=== PATIENT | female | born 1990 | race Caucasian/White ===

== ENCOUNTER 2016-08-31 22:14 | Emergency (ER) | payer SELFPAY ==
[~2016-08-31] VITALS: Ht 172.7 cm; Wt 63.8 kg
[~2016-08-31 22:14] MED LIST: MACR100C PO; OMEP20CA5 PO; PROM25SU8 PO; PROM50SU PR; RANI150 PO
[2016-08-31 22:20] VITALS: BP 134/98; PULSE 95; RESP 16; TEMP 98.2; O2SAT 98
--- NOTE | 2016-08-31 22:38 | PD ---
HPI Chief Complaint: Related Problem Time Seen by Provider: 22:26 Travel History International Travel<30 days: No Contact w/Intl Traveler<30days: No Traveled to known affect area: No History of Present Illness HPI 26-year-old female , proximally 22 weeks , LMP March 30, 2016, here for evaluation of possible [place] Rí[place] contractions. Patient reports that she began to have contractions at approximately 6:30 PM today. Initially they were about 5 minutes apart, lasting several seconds, then became more frequent. She states that they are now a little less frequent, stating that over the last hour she has had about 13 contractions. She denies vaginal bleeding or discharge. She has had routine care and reports no other complications with her . This is her first time having contractions. PFSH Past Medical History ?: LMP: march 30 Ovarian Cysts: Yes Social History Alcohol Use: Yes (drank 3 drinks last night) Tobacco Use: No Substance Use: No Allergies-Medications (Allergen,Severity, Reaction): Coded Allergies: No Known Allergies (Unverified , 06/24/15) Reported Meds & Prescriptions Reported Meds & Active Scripts Active Phenergan (Promethazine HCl) 50 Mg Sup 50 Mg DE Q8HR NAUSEA/VOMITING Macrobid (Nitrofurantoin Macrocrystals) 100 Mg Cap 100 Mg PO BID Prilosec 20 mg (Omeprazole) 20 Mg Capcr 20 Mg PO DAILY Phenergan (Promethazine HCl) 25 Mg Tab 25 Mg PO Q6H PRN FOR NAUSEA/VOMITING Zantac (Ranitidine HCl) 150 Mg Tab 150 Mg PO BID Review of Systems Except as stated in HPI: all other systems reviewed are Neg Physical Exam Narrative GENERAL: Well-developed, well-nourished, tearful, comfortable, no acute distress. SKIN: Focused skin assessment warm/dry. No rash. CARDIOVASCULAR: Regular rate and rhythm. GASTROINTESTINAL: Gravid uterus palpable above umbilicus. No abdominal tenderness. MUSCULOSKELETAL: No obvious deformities. No clubbing. No cyanosis. No edema. NEUROLOGICAL: Awake and alert. No obvious cranial nerve deficits. Motor grossly within normal limits. Normal speech. PSYCHIATRIC: Appropriate mood and affect; insight and judgment normal. Data Data Last Documented VS Vital Signs Date Time Temp Pulse Resp B/P Pulse Ox O2 Delivery O2 Flow Rate FiO2 5/9/17 22:20 98.2 95 16 134/98 98 [facility] Medical Decision Making Medical Screen Exam Complete: Yes Emergency Medical Condition: Yes Differential Diagnosis [place] contractions, labor Narrative Course Bedside ultrasound was performed by me and shows a large IUP with a heart rate of 135 bpm. Case discussed with on-call OB hospitalist Dr. Villanueva. Plan is to transfer the patient to the OB ED at [facility] for further monitoring. Patient does not wish to be transferred by ambulance and prefers to be driven by her friend who is present in the room. She will leave AMA and drive directly to the OB ED. Procedures Procedure Narrative Bedside transabdominal ultrasound: Using the curvilinear ultrasound probe, large IUP was identified with a heart rate of 135 bpm. Diagnosis Primary Impression: [place] Rí[place] contractions Additional Impression: Left against medical advice Additional Instructions: Go directly to the OB emergency department at [facility] in [facility] Disposition: 07 AGAINST MEDICAL ADVICE Condition: Stable Baljeet Joy MD August 31, 2016 22:38
[2016-08-31] MEDS ORDERED: PREN29TA PO (22:48)
== END 2016-08-31 23:04 | disposition left against medical advice (07) ==
LOC: PHED 22:14
DX: O47.02 False labor before 37 completed weeks of gestation, second trimester (principal); Z3A.22 22 weeks gestation of pregnancy
CPT/HCPCS: 99283

== ENCOUNTER 2016-08-31 23:22 | Emergency (ER) | payer OTHER ==
[~2016-08-31 23:22] MED LIST changes: +PREN29TA PO
--- NOTE | 2016-09-01 00:48 | PD ---
HPI Chief Complaint cramping, contractions Date Seen: September 01, 2016 Time Seen: 00:30 Travel History International Travel<30 Days: No Contact w/Intl Traveler<30Days: No Known Affected Area: No History of Present Illness HPI Pt is a 26 y/o G1 with IUP at 22w1d by stated TRENT who presents with c/o cramping /contractions. Pt states she started feeling cramping around 6:30 pm, diffuse abdominal, with some tightening. Pt states it got worse and she went home from work. States intensity varies, but felt up to 13 x in one hour. Pt presented to [facility] for eval, transferred here for OB eval. Pt reports that since arrival, cramping/contractions have decreased. Has only felt 2-3 since she has been here. denies vag bleeding or discharge. denies dysuria. + PNC with Dr. 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 reports h/o + CT, treated this o/w denies any complications of Para: 0 : 1 History Past Medical History Medical History: Denies Significant Hx Past Surgical History Narrative Surgical breast augmentation Family History Family History: Negative Social History Alcohol Use: No Tobacco Use: No Substance Abuse: No Allergies-Medications (Allergen,Severity, Reaction): Coded Allergies: No Known Allergies (Unverified , 08/31/16) Home Meds Reported Medications Vit-Iron Carbonyl ( Plus Iron 29-1 mg)1 Tab Tab1 Tab PO DAILY #30 TAB Ref 0 08/31/16 Review of Systems General / Constitutional: No: Fever, Weight Gain, Weight Loss, Chills, Other Eyes: No: Diploplia, Blurred Vision, Visual changes, Pain, Photophobia, Other HENT: No: Headaches, Vertigo, Dental Difficulties, Lightheadedness, Other Cardiovascular: No: Irregular Rhythm, Chest Pain or Discomfort, Palpitations, Tachycardia, Syncope, Varicosities, Edema, Cyanosis, Other Respiratory: No: Cough, Short of Breath, Wheezing, Other Gastrointestinal: Abdominal Pain, No: Nausea, Vomiting, Diarrhea, Hematemesis , Hematochezia, Constipation, Changes in Bowel Habits, Indigestion, Loss of Appetite, Other Genitourinary: No: Urgency, Frequency, Dysuria, Nocturia, Hematuria, Decreased Urinary Output, Oliguria, Hesitancy, Dribbling, Incontinence, Pelvic Pain, Dyspareunia, Discharge, Menorrhagia, Vaginal Bleeding, Other Musculoskeletal: No: Limited ROM, Weakness, Cramping, Edema, Pain, Other Skin: No Rash, No Itching, No Dryness, No Lumps, No Change in Pigmentation, No Change in Nails, No Alopecia, No Lesions, No Breast Lumps, No Breast Tenderness , No Breast Swelling, No Other Neurologic: No: Weakness, Dizziness, Syncope, Focal Abnormalities, Coordination Problem, Headache, Slurred Speech, Seizures, Other Psychiatric: No: Anxiety, Depression, Suicidal Ideations, Disorder of Thought, Mood Disorder, Substance Abuse, Homicidal Ideation, Other Endocrine: No: Heat Intolerance, Cold Intolerance, Polydipsia, Polyuria, Other Hematologic/Lymphatic: No Easy Bruising, No Lymph Node Enlargement, No Other Physical Exam 132/51, 80, 18, 97.2 Narrative GENERAL: Well-nourished, well-developed patient. SKIN: Warm and dry. HEAD: Normocephalic and atraumatic. EYES: No scleral icterus. No injection or drainage. ENT: No nasal drainage noted. Mucous membranes pink. Airway patent. NECK: Supple, trachea midline. No JVD. CARDIOVASCULAR: Regular rate and rhythm without murmurs, gallops, or rubs. RESPIRATORY: Breath sounds equal bilaterally. No accessory muscle use. . ABDOMEN/GI: Abdomen soft, non-tender, bowel sounds present, no rebound, no guarding gravid GENITOURINARY: External Genitalia: intact and normal in appearance BUS glands: [wnl] Cervix: visually closed on spec exam, closed/long/posterior on BME scant homogeneous white discharge in vault, no vag/cervical lesions, inflammation, irritation Uterine Contractions: [none ?irritability] FHT's: 130s EXTREMITIES: No cyanosis or edema. BACK: Nontender without obvious deformity. No CVA tenderness. NEUROLOGICAL: Awake and alert. Motor and sensory grossly within normal limits. Five out of 5 muscle strength in all muscle groups. Normal speech. Data Data Vital Signs Reviewed: Yes Orders Vital Signs (Adult) .ON ADMISSION (09/01/16 00:27) ^ Labor Status (09/01/16:27) Urinalysis - C+S If Indicated (09/01/16:27) ^ Hydration (5/10/17 00:27) MDM Narrative Course / MDM 26 y/o G1 with cramping, now improving --cervix closed; no s/sx vaginitis --rec continued hydration --return for worsening symptoms --will f/u UA prior to discharge Diagnosis Diagnosis: Primary Impression: [place] Ríos contractions Additional Impression: 22 weeks gestation of Disposition: 01 DISCHARGE HOME Condition: Stable Dea Villanueva MD September 01, 2016 00:48
[2016-09-01 00:52] LABS: BACTERIA, URINE RARE /hpf; BLOOD, URINE NEG (NEG); GLUCOSE,URINE NEG (NEG); KETONE, URINE NEG (NEG); NITRITE,URINE NEG (NEG); TRANSITIONAL EPI CELLS, URINE <1 /hpf; URINE COLOR LIGHT-YELLOW (YELLW/STRAW)
[2016-09-01 00:59] LABS: COMMENT (UR) CULT NOT INDICATED; CULTURE IF INDICATED CULT NOT INDICATED
== END 2016-09-01 02:14 | disposition home or self-care (01) ==
LOC: HOBED 23:22
DX: O47.9 False labor, unspecified (principal); R10.9 Unspecified abdominal pain; Z3A.22 22 weeks gestation of pregnancy
CPT/HCPCS: 81001; 99284

== ENCOUNTER 2016-10-08 17:45 | Emergency (ER) | payer OTHER ==
[2016-10-08] VITALS (43 sets, daily range): PULSE 75–108; RESP 18
[~2016-10-08 17:45] MED LIST changes: -MACR100C PO; -OMEP20CA5 PO; -PROM25SU8 PO; -PROM50SU PR; -RANI150 PO
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
== END 2016-10-08 23:43 | disposition home or self-care (01) ==
LOC: HOBED 17:45
DX: O26.92 Pregnancy related conditions, unspecified, second trimester (principal); Z3A.27 27 weeks gestation of pregnancy; S30.1XXA Contusion of abdominal wall, initial encounter; V49.40XA Driver injured in collision with unspecified motor vehicles in traffic accident, initial encounter; W22.11XA Striking against or struck by driver side automobile airbag, initial encounter; Y93.89 Activity, other specified; Y92.410 Unspecified street and highway as the place of occurrence of the external cause; Y99.8 Other external cause status
CPT/HCPCS: 76816; 76819; 83030; 99284

== ENCOUNTER 2017-12-14 07:09 | Observation (INO) ==
[2017-12-14] MEDS ORDERED: Sod Chloride 0.9% Inj 1,000 ML IV.SIG ONE ×2 (08:11→10:45)
[2017-12-14] MEDS ORDERED: Acetaminophen Inj 650 MG/65 ML VIAL IV.SIG ONE (08:13)
--- NOTE | 2017-12-14 08:17 | ED ---
HPI General Chief Complaint: Abdominal Pain Stated Complaint: abd pain Time Seen by Provider: 12/14/17 08:06 History of Present Illness HPI narrative: Patient presents to the emergency department with right lower quadrant pain that started at 630 this morning. Pain radiates to her back, sharp, constant, aggravated by trying to lay back, no alleviating factors. States that she does have a history of ovarian cyst rupture. Denies fever, chills, dysuria, hematuria, diarrhea, vomiting, but does report nausea. Patient is currently breast-feeding as she had a baby approximately 1 year ago. She states that she does not want any pain medication that would interfere with her breast-feeding. She had unprotected sex on Tuesday she does have a history of herpes. States that she is currently on her menstrual cycle. Related Data Home Medications Medication Instructions Recorded Confirmed No Known Home Medications 12/14/17 12/14/17 Allergies Allergy/AdvReac Type Severity Reaction Status Date / Time No Known Allergies Allergy Verified 12/14/17 07:19 Review of Systems ROS: all other systems reviewed are negative [facility] Medical History Medical History Ovarian cyst (Acute) Social History Social History Substance History: No History of Abuse Smoking Status: Never smoker How Often Do You Have a Drink Containing Alcohol: 2 to 4 times a month Recent Travel in [facility] within the Last 8 Weeks: No Recent Out of Country Travel within the Last 8 Weeks: No Immunization History Tetanus Immunization: Unsure Hx Influenza Vaccine This Season: No Exam Narrative Exam Narrative: GENERAL: In discomfort secondary to pain. SKIN: Focused skin assessment warm/dry. HEAD: Atraumatic. Normocephalic. EYES: Pupils equal and round. No scleral icterus. No injection or drainage. ENT: No nasal bleeding or discharge. Mucous membranes pink and moist. NECK: Trachea midline. No JVD. CARDIOVASCULAR: Regular rate and rhythm. No murmur appreciated. RESPIRATORY: No accessory muscle use. Clear to auscultation. Breath sounds equal bilaterally. GASTROINTESTINAL: Abdomen soft, right lower quadrant tender, nondistended. Right CVA tenderness. MUSCULOSKELETAL: No obvious deformities. No clubbing. No cyanosis. No edema. NEUROLOGICAL: Awake and alert. No obvious cranial nerve deficits. Motor grossly within normal limits. Normal speech. PSYCHIATRIC: Appropriate mood and affect; insight and judgment normal. Pelvic: Difficult to assess CMT/adnexa tenderness as patient writing around in bed prior to, during, and after pelvic, + bleeding from cervix (patient on menses), erythematous cervix Course Initial Documented Vital Signs Temperature 98.2 F 12/14/17 07:10 Pulse Rate 121 H 12/14/17 07:10 Respiratory Rate 20 12/14/17 07:10 Blood Pressure 130/76 12/14/17 07:10 Pulse Oximetry 99 12/14/17 07:10 Last Documented Vital Signs Temperature 98.2 F 12/14/17 07:10 Pulse Rate 111 H 12/14/17 10:00 Respiratory Rate 18 12/14/17 10:00 Blood Pressure 130/89 12/14/17 10:00 Pulse Oximetry 98 12/14/17 10:00 Medical Decision Making MDM Narrative Medical decision making narrative: Patient presents to the emergency department with right lower quadrant pain. Patient placed on telemetry monitor, continuous pulse ox, and IV access obtained. She given 1 L IV normal saline and 650 mg IV Tylenol. Labs and CT scan ordered. Labs: + UTI, clue cells, Patient given 1gram IV rocephin for UTI. Flagyl 500mg po for BV. Additional liter of IV NS. 4mg IV zofran ordered. CT: CONCLUSION:No acute CT findings in the abdomen or pelvis. U/S: CONCLUSION: 1. No acute finding is identified to explain the right lower quadrant pain.2. Heterogeneous endometrium with trace endometrial fluid. Patient is currently in the menstrual phase which may explain the findings. Consider follow-up if there is a history of dysfunctional uterine bleeding.3. Ovaries have a normal appearance with normal follicles. There is a small volume of simple free fluid in the pelvis. patient admitte dfor obs for intractable pain, n/v, and pyelonephritis Medical Screen Exam Complete: Yes Emergency Medical Condition: Yes Differential Diagnosis Differential Diagnosis: Appendicitis, ovarian torsion, , kidney stone, pyelo nephritis, cholecystitis, UTI POC Test Results POC Urine Results: Negative Lab Data Result diagrams: 12/14/17 07:25 12/14/17 07:25 Lab Results 12/14/17 12/14/17 12/14/17 Range/Units 07:25 07:25 07:25 WBC 10.1 (4.0-11.0) th/mm3 RBC 4.47 (4.00-5.30) mil/mm3 Hgb 13.7 (11.6-15.3) gm/dL Hct 39.3 (35.0-46.0) % MCV 88.0 (80.0-100.0) fL MCH 30.7 (27.0-34.0) pg MCHC 34.9 (32.0-36.0) % RDW 12.5 (11.6-17.2) % Plt Count 285 (150-450) th/mm3 MPV 8.4 (7.0-11.0) fL Neut % (Auto) 60.7 (16.0-70.0) % Lymph % (Auto) 27.6 (9.0-44.0) % [place] % (Auto) 10.6 H (0.0-8.0) % Eos % (Auto) 0.8 (0.0-4.0) % Baso % (Auto) 0.3 (0.0-2.0) % Neut # (Auto) 6.1 (1.8-7.7) th/mm3 Lymph # (Auto) 2.8 (1.0-4.8) th/mm3 [place] # (Auto) 1.1 H (0.0-0.9) th/mm3 Eos # (Auto) 0.1 (0.0-0.4) th/mm3 Baso # (Auto) 0.0 (0.0-0.2) th/mm3 WBC Differential . Differential Comment Auto diff final PT 10.8 (9.8-11.6) sec INR 1.1 Ratio APTT 24.7 (24.3-30.1) sec Sodium 140 (136-145) meq/L Potassium 4.2 (3.5-5.1) meq/L Chloride 106 (98-107) meq/L Carbon Dioxide 21.2 (21.0-32.0) meq/L Anion Gap 13 (5-15) meq/L BUN 13 (7-18) mg/dL Creatinine 0.81 (0.50-1.00) mg/dL Estimated GFR 86 L (>89) mL/min Random Glucose 75 (74-106) mg/dL Calcium 8.7 (8.5-10.1) mg/dL Total Bilirubin 0.4 (0.2-1.0) mg/dL AST 20 (15-37) U/L ALT 22 (10-53) U/L Alkaline Phosphatase 67 (45-117) U/L Total Protein 8.4 H (6.4-8.2) g/dL Albumin 4.4 (3.4-5.0) g/dL Lipase 95 (73-393) U/L Urine Color (Yellw/Straw) Urine Clarity (Clear) Urine pH (5.0-8.5) Ur Specific [place] (1.002-1.035) Urine Protein (Neg-Trace) mg/dL Urine Glucose (UA) (Negative) mg/dL Urine Ketones (Negative) mg/dL Urine Occult Blood (Negative) Urine Nitrate (Negative) Urine Bilirubin (Negative) Urine Urobilinogen (Less than 2) mg/dL Ur Leukocyte Esterase (Negative) Urine RBC (0-3) /hpf Urine WBC (0-5) /hpf Ur Squamous Epith Cells (0-5) /hpf Urine Bacteria (None) /hpf Micro UA Comment Urine Culture Comments Clue Cells (Wet Prep) (None Seen) Trichomonas (Wet Prep) (None Seen) Yeast (Wet Prep) (None Seen) 12/14/17 12/14/17 Range/Units 08:46 08:50 WBC (4.0-11.0) th/mm3 RBC (4.00-5.30) mil/mm3 Hgb (11.6-15.3) gm/dL Hct (35.0-46.0) % MCV (80.0-100.0) fL MCH (27.0-34.0) pg MCHC (32.0-36.0) % RDW (11.6-17.2) % Plt Count (150-450) th/mm3 MPV (7.0-11.0) fL Neut % (Auto) (16.0-70.0) % Lymph % (Auto) (9.0-44.0) % [place] % (Auto) (0.0-8.0) % Eos % (Auto) (0.0-4.0) % Baso % (Auto) (0.0-2.0) % Neut # (Auto) (1.8-7.7) th/mm3 Lymph # (Auto) (1.0-4.8) th/mm3 [place] # (Auto) (0.0-0.9) th/mm3 Eos # (Auto) (0.0-0.4) th/mm3 Baso # (Auto) (0.0-0.2) th/mm3 WBC Differential Differential Comment PT (9.8-11.6) sec INR Ratio APTT (24.3-30.1) sec Sodium (136-145) meq/L Potassium (3.5-5.1) meq/L Chloride (98-107) meq/L Carbon Dioxide (21.0-32.0) meq/L Anion Gap (5-15) meq/L BUN (7-18) mg/dL Creatinine (0.50-1.00) mg/dL Estimated GFR (>89) mL/min Random Glucose (74-106) mg/dL Calcium (8.5-10.1) mg/dL Total Bilirubin (0.2-1.0) mg/dL AST (15-37) U/L ALT (10-53) U/L Alkaline Phosphatase (45-117) U/L Total Protein (6.4-8.2) g/dL Albumin (3.4-5.0) g/dL Lipase (73-393) U/L Urine Color Yellow (Yellw/Straw) Urine Clarity Hazy H (Clear) Urine pH 7.0 (5.0-8.5) Ur Specific [place] 1.009 (1.002-1.035) Urine Protein 30 H (Neg-Trace) mg/dL Urine Glucose (UA) Negative (Negative) mg/dL Urine Ketones Negative (Negative) mg/dL Urine Occult Blood Moderate H (Negative) Urine Nitrate Negative (Negative) Urine Bilirubin Negative (Negative) Urine Urobilinogen Less than 2 (Less than 2) mg/dL Ur Leukocyte Esterase Large H (Negative) Urine RBC 3 (0-3) /hpf Urine WBC 72 H (0-5) /hpf Ur Squamous Epith Cells 3 (0-5) /hpf Urine Bacteria Occasional H (None) /hpf Micro UA Comment Culture indicated Urine Culture Comments Culture indicated Clue Cells (Wet Prep) Present H (None Seen) Trichomonas (Wet Prep) None seen (None Seen) Yeast (Wet Prep) None seen (None Seen) Imaging Data Radiologist's impression: Abdomen/Pelvis CT 12/14/17 08:11 CONCLUSION: No acute CT findings in the abdomen or pelvis. Abdomen/Pelvis/Transvag US 12/14/17 09:29 CONCLUSION: 1. No acute finding is identified to explain the right lower quadrant pain. 2. Heterogeneous endometrium with trace endometrial fluid. Patient is currently in the menstrual phase which may explain the findings. Consider follow -up if there is a history of dysfunctional uterine bleeding. 3. Ovaries have a normal appearance with normal follicles. There is a small volume of simple free fluid in the pelvis. Discharge Plan Discharge Disposition Patient Disposition: 30 Still Patient Discharge Condition Condition: Stable Discharge Details Diagnosis: Pyelonephritis Physicians Team ED Provider: Shell Shell Primary Care Provider: Primary Care Imani Jackson Rxs /Orders / Referrals /Forms Prescriptions: No Action No Known Home Medications RF: 0 Discharge Interventions Interventions: Vital Signs Last Done: 12/14/17 10:00 Status ED Status: Admitted Observation Patient
[2017-12-14 08:42] LABS: Baso % (Auto) 0.3 % (0.0-2.0); Eos # (Auto) 0.1 th/mm3 (0.0-0.4); Eos % (Auto) 0.8 % (0.0-4.0); Hematocrit 39.3 % (35.0-46.0); Hemoglobin 13.7 gm/dL (11.6-15.3); Lymph # (Auto) 2.8 th/mm3 (1.0-4.8); Lymph % (Auto) 27.6 % (9.0-44.0); Mean Corpuscular HGB Conc 34.9 % (32.0-36.0); Mean Corpuscular Hemoglobin 30.7 pg (27.0-34.0); Mean Platelet Volume 8.4 fL (7.0-11.0); Mono # (Auto) 1.1 th/mm3 (0.0-0.9); Mono % (Auto) 10.6 % (0.0-8.0); Neut # (Auto) 6.1 th/mm3 (1.8-7.7); Neut % (Auto) 60.7 % (16.0-70.0); Platelet Count 285 th/mm3 (150-450); Red Blood Count 4.47 mil/mm3 (4.00-5.30); Red Cell Distribution Width 12.5 % (11.6-17.2); White Blood Count 10.1 th/mm3 (4.0-11.0)
[2017-12-14 08:47] LABS: Activated Partial Thrombo Time 24.7 sec (24.3-30.1); INR 1.1 Ratio; Prothrombin Time 10.8 sec (9.8-11.6)
[2017-12-14 09:02] LABS: Albumin 4.4 g/dL (3.4-5.0); Anion Gap 13 meq/L (5-15); Aspartate Aminotransferase 20 U/L (15-37); Blood Urea Nitrogen 13 mg/dL (7-18); Calcium 8.7 mg/dL (8.5-10.1); Carbon Dioxide 21.2 meq/L (21.0-32.0); Chloride 106 meq/L (98-107); Glomerular Filtration Rate 86 mL/min (>89); Glucose,Random 75 mg/dL (74-106); Lipase 95 U/L (73-393); Potassium 4.2 meq/L (3.5-5.1); Sodium 140 meq/L (136-145)
[2017-12-14 09:03] LABS: Alanine Aminotransferase 22 U/L (10-53)
[2017-12-14 09:05] LABS: Alkaline Phosphatase 67 U/L (45-117); Total Protein 8.4 g/dL (6.4-8.2)
[2017-12-14 09:17] LABS: Bacteria,Urine Occasional /hpf; Bilirubin,Urine Negative (Negative); Clarity,Urine Hazy (Clear); Color,Urine Yellow (Yellw/Straw); Glucose,Urine (UA) Negative (Negative); Leukocyte Esterase,Urine Large (Negative); Nitrite,Urine Negative (Negative); Specific Gravity,Urine 1.009 (1.002-1.035); Squamous Epithelial Cell,Urine 3 /hpf (0-5)
--- NOTE | 2017-12-14 09:21 | CT ---
EXAM DATE: 12/14/2017 9:12 AM EDT AGE/SEX: 27 years / Female INDICATIONS: Right lower quadrant pain. CLINICAL DATA: This is the patient's initial encounter. Patient reports that signs and symptoms have been present for 2 days and indicates a pain score of 8/10. MEDICAL/SURGICAL HISTORY: None. None. RADIATION DOSE: 9.15 CTDI (mGy) COMPARISON: No prior exams available for comparison. TECHNIQUE: Multiple contiguous axial images were obtained through the abdomen. Images were obtained using multiple row detector helical technique. Using automated exposure control and adjustment of the mA and/or kV according to patient size, radiation dose was kept as low as reasonably achievable to o btain optimal diagnostic quality images. DICOM format image data is available electronically for rev iew and comparison. FINDINGS: Lower Lungs: The visualized lower lungs are clear. Liver: The liver has a homogeneous density without space-occupying lesion. There is no dilation of th e biliary tree. Spleen: Homogeneous density without enlargement. Pancreas: Unremarkable without mass or calcification. Kidneys: Normal in size and shape. No evidence of mass or hydronephrosis. Adrenal Glands: Unremarkable. Aorta: The aorta and proximal iliac vessels are grossly unremarkable without aneurysmal dilation. Bowel/Mesentery: The bowel loops are grossly unremarkable. The cecum and sigmoid colon have a normal configuration. The appendix is seen and appears normal. Abdominal Wall: Intact. Retroperitoneum: No evidence of adenopathy in the retrocrural, para-aortic, or deep pelvic regions. Bladder: Contours are smooth. Reproductive Organs: No abnormal masses or calcifications seen. Inguinal: The inguinal region is unremarkable without evidence of adenopathy. Bony Structures: Unremarkable. CONCLUSION: No acute CT findings in the abdomen or pelvis. Electronically signed by: Victorino Blanco MD 12/14/2017 9:19 AM EDT
--- NOTE | 2017-12-14 10:26 | US ---
EXAM DATE: 12/14/2017 10:16 AM EDT AGE/SEX: 27 years / Female INDICATIONS: Right lower quadrant pain. CLINICAL DATA: This is the patient's initial encounter. Patient reports that signs and symptoms have been present for 1 day and indicates a pain score of 10/10. MEDICAL/SURGICAL HISTORY: . Ovarian cysts. None. COMPARISON: [facility] [place], CT ABDOMEN & PELVIS W/O CONTRAST, 12/14/2017. . MEASUREMENTS: Uterus:__6.8 x 5.7 x 3.7 cm Endometrial Stripe:__8 mm Right Ovary:__ 2.6 x 2.5 x 2.0 cm Left Ovary:__ 3.3 x 1.9 x 1.6 cm FINDINGS: Uterus: Uterine myometrium is within normal limits without mass. Endometrium is heterogeneous in ech otexture with a trace endometrial fluid. No focal endometrial abnormality is identified. Cervix has a normal appearance. Endometrial Stripe: Endometrial fluid is visualized. Right Ovary: Ovary contains no mass. Follicles are present. Left Ovary: Ovary contains no mass. Follicles are present. Fluid: Mild simple free fluid. Other: None. CONCLUSION: 1. No acute finding is identified to explain the right lower quadrant pain. 2. Heterogeneous endometrium with trace endometrial fluid. Patient is currently in the menstrual pha se which may explain the findings. Consider follow-up if there is a history of dysfunctional uterine bleeding. 3. Ovaries have a normal appearance with normal follicles. There is a small volume of simple free fl uid in the pelvis. Electronically signed by: Victorino Lazo MD 12/14/2017 10:24 AM EDT
[2017-12-14] MEDS ORDERED: metroNIDAZOLE 500 MG Tablet PO ONE (10:44)
[2017-12-14] MEDS ORDERED: Acetaminophen 500 MG Tablet PO PRN ×2 (11:50→12:13)
--- NOTE | 2017-12-14 11:57 | P.HPIM ---
History of Present Illness Service: Mrs. Grimaldo is a 27-year-old female. She is coming to the emergency department secondary to abdominal pain and back pain. She also has persistent nausea/ vomiting. Abdominal pain is described as severe and mostly in the right lower quadrant. She was worried about appendicitis. She also thought she might of had an ovarian cyst which she has had in the past. Workup in the emergency department shows positivity for urinary tract infection and she has positive CVA tenderness which would be indicative of pyelonephritis. Imaging does not show any abscess or visualize hydronephrosis. She has tachycardia but does not quite meet septic criteria at time of admit. No evidence of ectopic on ultrasound, beta-hCG pending. Primary Care Physician: No Primary Care Physician Review of Systems Constitutional: No fevers, no chills no night sweats, no fatigue, no weakness Eyes: No eye pain, no blurry vision, no loss of vision ENT: No sore throat, no ear pain, no rhinorrhea Cardiovascular: No chest pain, no tachycardia, no palpitations, no shortness of breath, no syncope Respiratory: No wheezing, no cough, no shortness of breath Gastrointestinal: Positive abdominal pain, no black tarry stools, no bright red blood per rectum, positive nausea/vomiting, no diarrhea Musculoskeletal: No joint pain, no muscle cramps, no stiffness, positive back pain Integumentary: No rash, no ulcers, no drainage Neurologic: No sensory loss, no loss of motor function, no dizziness Psychiatric: No behavioral changes, no hallucinations, no suicidal ideations PMFSH - History History Provided By: Patient - Medical History Medical History: Medical History (Last Updated 12/14/17 @ 07:28 by Eden Qiu) Ovarian cyst - Tobacco History Smoking Status: Never smoker - Alcohol History How Often Do You Have a Drink Containing Alcohol: 2 to 4 times a month - Substance Use History Substance History: No History of Abuse - Travel History Recent Travel in the [place] Within the Last 8 Weeks: No Recent Travel Out of the Country Within the Last 8 Weeks: No - Immunization History Tetanus Immunization: Unsure Hx Influenza Vaccine This Season: No Medications and Allergies Active Medications: Active Medications Acetaminophen (Tylenol) 500 mg PO Q6H PRN PRN Reason: Pain 1 to 10 Al Hydroxide/Mg Hydroxide (Milk Of Magnesia Liq) 30 ml PO Q12H PRN PRN Reason: Mild Constipation Metronidazole/Sodium Chloride (Flagyl 500 Mg Inj) 100 mls @ 100 mls/hr IV.SIG Q8H [facility] Sodium Chloride (Ns Inj) 1,000 mls @ 100 mls/hr IV.CONT .Q10H [facility] Ceftriaxone Sodium 1,000 mg/ (Sodium Chloride) 100 mls @ 200 mls/hr IV.SIG Q24H [facility] Lactobacillus Acidophilus (Lactinex) 1 tab PO TID [facility] Naproxen (Naprosyn) 500 mg PO BID [facility]RES Naproxen (Naprosyn) 500 mg PO ONCE ONE Stop: 12/14/17 11:52 Ondansetron HCl (Zofran Inj) 4 mg IV.PUSH Q6H PRN PRN Reason: NAUSEA OR VOMITING Allergies Allergy/AdvReac Type Severity Reaction Status Date / Time No Known Allergies Allergy Verified 12/14/17 07:19 Home Medications Medication Instructions Recorded Confirmed Type No Known Home Medications 12/14/17 12/14/17 History Exam Vital signs: Vital Signs 12/14/17 07:10 12/14/17 07:30 12/14/17 10:00 Temperature 98.2 F Pulse Rate 121 H 88 111 H Respiratory Rate 20 18 Blood Pressure 130/76 139/94 H 130/89 Pulse Oximetry 99 98 98 Intake & Output 12/13/17 12/14/17 12/14/17 18:59 06:59 18:59 Intake Total 1065 / 1065 Balance 1065 / 1065 Weight 56.699 kg Intake: IV 1065 / 1065 Ofirmev Inj 650 mg In 65 ml @ 65 / 65 260 mls/hr IV.SIG ONCE ONE Rx#: [id number] NS Inj 1,000 ML @ Wide Open IV. 1000 / 1000 SIG BOLUS ONE Rx#:[id number] Narrative: GENERAL: NAD, A&Ox3 HEAD: Normocephalic. NECK: Supple, trachea midline. No lymphadenopathy. EYES: No scleral icterus. No injection or drainage. CARDIOVASCULAR: Regular rate and rhythm without murmurs, gallops, or rubs. RESPIRATORY: Breath sounds equal bilaterally. No accessory muscle use. GASTROINTESTINAL: Abdomen soft, nondistended. Tender to palpation without guarding. MUSCULOSKELETAL: No cyanosis, or edema. Right CVA tenderness. SKIN: Warm and dry. NEURO: No focal neurological deficits. Results - Labs CBC & Chem 7: 12/14/17 07:25 08/22/18 07:25 Labs: Short CBC 12/14/17 Range/Units 07:25 WBC 10.1 (4.0-11.0) th/mm3 Hgb 13.7 (11.6-15.3) gm/dL Hct 39.3 (35.0-46.0) % Plt Count 285 (150-450) th/mm3 BMP 12/14/17 07:25 Sodium 140 Potassium 4.2 Chloride 106 Carbon Dioxide 21.2 BUN 13 Creatinine 0.81 Calcium 8.7 Liver Function 12/14/17 Range/Units 07:25 Total Bilirubin 0.4 (0.2-1.0) mg/dL AST 20 (15-37) U/L ALT 22 (10-53) U/L Alkaline Phosphatase 67 (45-117) U/L Albumin 4.4 (3.4-5.0) g/dL Urine 12/14/17 Range/Units 08:50 Urine Color Yellow (Yellw/Straw) Urine Clarity Hazy H (Clear) Urine pH 7.0 (5.0-8.5) Ur Specific [place] 1.009 (1.002-1.035) Urine Protein 30 H (Neg-Trace) mg/dL Urine Glucose (UA) Negative (Negative) mg/dL - Imaging Impressions Abdomen/Pelvis CT 12/14/17 08:11 CONCLUSION: No acute CT findings in the abdomen or pelvis. Abdomen/Pelvis/Transvag US 12/14/17 09:29 CONCLUSION: 1. No acute finding is identified to explain the right lower quadrant pain. 2. Heterogeneous endometrium with trace endometrial fluid. Patient is currently in the menstrual phase which may explain the findings. Consider follow -up if there is a history of dysfunctional uterine bleeding. 3. Ovaries have a normal appearance with normal follicles. There is a small volume of simple free fluid in the pelvis. Caprini VTE Risk Assessment Caprini VTE Risk Assessment: No/Low Risk (score <= 1) Caprini Risk Assessment Model: Point Value = 1 Point Value = 2 Point Value = 3 Point Value = 5 Age 41-60 Minor surgery BMI > 25 kg/m2 Swollen legs Varicose veins or History of unexplained or recurrent spontaneous Oral contraceptives or hormone replacement Sepsis (< 1 month) Serious lung disease, including pneumonia (< 1 month) Abnormal pulmonary function Acute myocardial infarction Congestive heart failure (< 1 month) History of inflammatory bowel disease Medical patient at bed rest Age 61-74 Arthroscopic surgery Major open surgery (> 45 min) Laparoscopic surgery (> 45 min) Malignancy Confined to bed (> 72 hours) Immobilizing plaster cast Central venous access Age >= 75 History of VTE Family history of VTE Factor V Leiden Prothrombin [id number] Lupus anticoagulant Anticardiolipin antibodies Elevated serum homocysteine Heparin-induced thrombocytopenia Other congenital or acquired thrombophilia Stroke (< 1 month) Elective arthroplasty Hip, pelvis, or leg fracture Acute spinal cord injury (< 1 month) Prophylaxis Regimen: Total Risk Factor Score Risk Level Prophylaxis Regimen 0-1 Low Early ambulation 2 Moderate Order ONE of the following: *Sequential Compression Device (SCD) *Heparin 5000 units SQ BID 3-4 Higher Order ONE of the following medications: *Heparin 5000 units SQ TID *Enoxaparin/Lovenox 40 mg SQ daily (WT < 150 kg, CrCl > 30 mL/min) *Enoxaparin/Lovenox 30 mg SQ daily (WT < 150 kg, CrCl > 10-29 mL/min) *Enoxaparin/Lovenox 30 mg SQ BID (WT < 150 kg, CrCl > 30 mL/min) AND/OR *Sequential Compression Device (SCD) 5 or more Highest Order ONE of the following medications: *Heparin 5000 units SQ TID (Preferred with Epidurals) *Enoxaparin/Lovenox 40 mg SQ daily (WT < 150 kg, CrCl > 30 mL/min) *Enoxaparin/Lovenox 30 mg SQ daily (WT < 150 kg, CrCl > 10-29 mL/min) *Enoxaparin/Lovenox 30 mg SQ BID (WT < 150 kg, CrCl > 30 mL/min) AND *Sequential Compression Device (SCD) Assessment and Plan - Plan 27-year-old female admitted secondary to hyperemesis, abdominal pain, and UTI/ pyelonephritis Urinary tract infection Pyelonephritis Bacterial vaginosis Rocephin Flagyl Probiotics Pain treatments with Tylenol and NSAIDs (patient declines narcotics) Monitor for any signs of progression to sepsis Evaluate for with serum beta hCG No acute findings of concern on imaging including CT and ultrasound Hyperemesis Likely secondary to urinary colic from pyelonephritis Continue Zofran Continue pain treatments as above Dehydration DVT prophylaxis SCDs
[2017-12-14] MEDS ORDERED: Naproxen 500 MG Tablet PO ONE (13:00)
[2017-12-14] MEDS: Sod Chloride 0.9% Inj 1,000 ML IV.CONT SCH ×2 (13:06→21:14)
[2017-12-14] MEDS: Lactobacillus Acidophilus/L. Spores Tablet PO SCH ×2 (13:23→18:21)
[2017-12-14] MEDS: Naproxen 500 MG Tablet PO SCH (21:13)
[2017-12-15] MEDS: Sod Chloride 0.9% Inj 1,000 ML IV.CONT SCH ×2 (07:47→19:19)
--- NOTE | 2017-12-15 08:33 | P.PN ---
Subjective Interval history: Follow-up for acute pyelonephritis, UTI, bacterial vaginosis. Patient reports feeling slightly better today. She denies any fevers or chills overnight. She reports continued diffuse mild lower abdominal pain, worse at the right lower quadrant, with radiation into bilateral flanks today. She reports occasional nausea, no vomiting. Nausea relieved by Zofran. She tolerated some oral intake last night. Denies any other medical complaints at this time. Physical Exam Vital signs: Vital Signs 12/14/17 10:00 12/14/17 11:46 12/14/17 15:00 Temperature Pulse Rate 111 H 94 H 73 Respiratory Rate 18 18 16 Blood Pressure 130/89 148/60 H Pulse Oximetry 98 98 12/14/17 18:01 12/14/17 20:00 12/14/17 23:50 Temperature 98.8 F 97.2 F L Pulse Rate 75 91 H 70 Respiratory Rate 18 16 Blood Pressure 149/65 H 129/62 120/73 Pulse Oximetry 99 98 12/14/17 23:55 12/15/17 04:20 12/15/17 07:49 Temperature 96.5 F L 98.8 F Pulse Rate 65 64 Respiratory Rate 20 20 16 Blood Pressure 110/74 116/81 Pulse Oximetry 99 98 Intake & Output 12/14/17 12/15/17 12/15/17 18:59 06:59 18:59 Intake Total 1065 / 1065 2300 / 2300 Balance 1065 / 1065 2300 / 2300 Weight 56.699 kg Intake: IV 1065 / 1065 2300 / 2300 NS Inj 1,000 ML @ 100 mls/hr IV 1000 / 1000 .CONT .Q10H [facility] Rx#:[id number] Ofirmev Inj 650 mg In 65 ml @ 65 / 65 260 mls/hr IV.SIG ONCE ONE Rx#: [id number] NS Inj 1,000 ML @ Wide Open IV. 1000 / 1000 SIG BOLUS ONE Rx#:[id number] Flagyl 500 MG Inj 100 ML @ 100 200 / 200 mls/hr IV.SIG Q8H [facility] Rx#: [id number] Narrative: GENERAL: Well-nourished, well-developed young female patient in [facility]. Appears comfortable, lying in bed. SKIN: Warm and dry. No rash. HEENT: Normocephalic. Atraumatic. Pupils equal and round. Mucous membranes pink and moist. CARDIOVASCULAR: Regular rate and rhythm. No murmur appreciated. RESPIRATORY: No accessory muscle use. Clear to auscultation. Breath sounds equal bilaterally. GASTROINTESTINAL: Abdomen soft, nondistended, mild suprapubic tenderness to palpation. Normoactive bowel sounds x4. MUSCULOSKELETAL: No obvious deformities. Extremities without clubbing, cyanosis , or edema. Mild bilateral CVA tenderness. NEUROLOGICAL: Awake and alert. No obvious cranial nerve deficits. Motor grossly within normal limits. Moving all extremities spontaneously. Normal speech. PSYCHIATRIC: Appropriate mood and affect; insight and judgment normal. Results - Labs CBC & Chem 7: 12/14/17 07:25 12/14/17 07:25 Laboratory Results - last 24 hr 12/14/17 12/14/17 12/14/17 07:25 07:25 07:25 WBC 10.1 RBC 4.47 Hgb 13.7 Hct 39.3 MCV 88.0 MCH 30.7 MCHC 34.9 RDW 12.5 Plt Count 285 MPV 8.4 Neut % (Auto) 60.7 Lymph % (Auto) 27.6 [place] % (Auto) 10.6 H Eos % (Auto) 0.8 Baso % (Auto) 0.3 Neut # (Auto) 6.1 Lymph # (Auto) 2.8 [place] # (Auto) 1.1 H Eos # (Auto) 0.1 Baso # (Auto) 0.0 WBC Differential . Differential Comment Auto diff final PT 10.8 INR 1.1 APTT 24.7 Sodium 140 Potassium 4.2 Chloride 106 Carbon Dioxide 21.2 Anion Gap 13 BUN 13 Creatinine 0.81 Estimated GFR 86 L Random Glucose 75 Calcium 8.7 Total Bilirubin 0.4 AST 20 ALT 22 Alkaline Phosphatase 67 Total Protein 8.4 H Albumin 4.4 Lipase 95 Beta HCG, Qual Urine Color Urine Clarity Urine pH Ur Specific [place] Urine Protein Urine Glucose (UA) Urine Ketones Urine Occult Blood Urine Nitrate Urine Bilirubin Urine Urobilinogen Ur Leukocyte Esterase Urine RBC Urine WBC Ur Squamous Epith Cells Urine Bacteria Micro UA Comment Urine Culture Comments Clue Cells (Wet Prep) Trichomonas (Wet Prep) Yeast (Wet Prep) Chlam trachomat DNA PCR N.gonorrhoeae DNA (PCR) 12/14/17 12/14/17 12/14/17 07:25 08:46 08:46 WBC RBC Hgb Hct MCV MCH MCHC RDW Plt Count MPV Neut % (Auto) Lymph % (Auto) [place] % (Auto) Eos % (Auto) Baso % (Auto) Neut # (Auto) Lymph # (Auto) [place] # (Auto) Eos # (Auto) Baso # (Auto) WBC Differential Differential Comment PT INR APTT Sodium Potassium Chloride Carbon Dioxide Anion Gap BUN Creatinine Estimated GFR Random Glucose Calcium Total Bilirubin AST ALT Alkaline Phosphatase Total Protein Albumin Lipase Beta HCG, Qual Less than 1.0 Urine Color Urine Clarity Urine pH Ur Specific [place] Urine Protein Urine Glucose (UA) Urine Ketones Urine Occult Blood Urine Nitrate Urine Bilirubin Urine Urobilinogen Ur Leukocyte Esterase Urine RBC Urine WBC Ur Squamous Epith Cells Urine Bacteria Micro UA Comment Urine Culture Comments Clue Cells (Wet Prep) Present H Trichomonas (Wet Prep) None seen Yeast (Wet Prep) None seen Chlam trachomat DNA PCR Not detected N.gonorrhoeae DNA (PCR) Not detected 12/14/17 08:50 WBC RBC Hgb Hct MCV MCH MCHC RDW Plt Count MPV Neut % (Auto) Lymph % (Auto) [place] % (Auto) Eos % (Auto) Baso % (Auto) Neut # (Auto) Lymph # (Auto) [place] # (Auto) Eos # (Auto) Baso # (Auto) WBC Differential Differential Comment PT INR APTT Sodium Potassium Chloride Carbon Dioxide Anion Gap BUN Creatinine Estimated GFR Random Glucose Calcium Total Bilirubin AST ALT Alkaline Phosphatase Total Protein Albumin Lipase Beta HCG, Qual Urine Color Yellow Urine Clarity Hazy H Urine pH 7.0 Ur Specific [place] 1.009 Urine Protein 30 H Urine Glucose (UA) Negative Urine Ketones Negative Urine Occult Blood Moderate H Urine Nitrate Negative Urine Bilirubin Negative Urine Urobilinogen Less than 2 Ur Leukocyte Esterase Large H Urine RBC 3 Urine WBC 72 H Ur Squamous Epith Cells 3 Urine Bacteria Occasional H Micro UA Comment Culture indicated Urine Culture Comments Culture indicated Clue Cells (Wet Prep) Trichomonas (Wet Prep) Yeast (Wet Prep) Chlam trachomat DNA PCR N.gonorrhoeae DNA (PCR) - Imaging Impressions Abdomen/Pelvis CT 12/14/17 08:11 CONCLUSION: No acute CT findings in the abdomen or pelvis. Abdomen/Pelvis/Transvag US 12/14/17 09:29 CONCLUSION: 1. No acute finding is identified to explain the right lower quadrant pain. 2. Heterogeneous endometrium with trace endometrial fluid. Patient is currently in the menstrual phase which may explain the findings. Consider follow -up if there is a history of dysfunctional uterine bleeding. 3. Ovaries have a normal appearance with normal follicles. There is a small volume of simple free fluid in the pelvis. Assessment and Plan - Plan 27-year-old female with history of ovarian cysts presents with abdominal pain, flank pain, nausea/vomiting. Acute pyelonephritis/UTI: UA with large leuks and WBCs. No signs of sepsis at this time. -CT abd/pelvis reviewed, no acute findings -Pelvic U/S with No acute finding is identified to explain the right lower quadrant pain -Continue antibiotics with IV Rocephin -Continue supportive treatment with IV fluid hydration, antiemetics, and pain control with Tylenol/NSAIDs as needed (patient declines narcotics) -Monitor urine culture Bacterial vaginosis: Acute -Wet prep positive for clue cells -Continue on Flagyl, transition to p.o. Nausea/Vomiting: Acute, suspect urinary colic from pyelonephritis vs viral syndrome -give Zofran prn -IVF hydration -symptoms improved, no further vomiting DVT Prophylaxis: low risk, patient is ambulatory Discharge Planning: Discharge pending further clinical improvement and urine culture.
[2017-12-15] MEDS: Naproxen 500 MG Tablet PO SCH ×2 (12:01→20:42)
[2017-12-15] MEDS: Lactobacillus Acidophilus/L. Spores Tablet PO SCH ×3 (12:01→19:19)
[2017-12-15 12:16] LABS: Alanine Aminotransferase 18 U/L (10-53); Albumin 3.7 g/dL (3.4-5.0); Alkaline Phosphatase 56 U/L (45-117); Anion Gap 9 meq/L (5-15); Aspartate Aminotransferase 18 U/L (15-37); Blood Urea Nitrogen 9 mg/dL (7-18); Chloride 112 meq/L (98-107); Glomerular Filtration Rate Greater Than 89 mL/min (>89); Glucose,Random 84 mg/dL (74-106); Potassium 4.2 meq/L (3.5-5.1)
[2017-12-15 12:19] LABS: Sodium 142 meq/L (136-145)
[2017-12-15 13:25] LABS: Baso % (Auto) 0.4 % (0.0-2.0); Eos # (Auto) 0.1 th/mm3 (0.0-0.4); Eos % (Auto) 1.4 % (0.0-4.0); Hemoglobin 12.5 gm/dL (11.6-15.3); Lymph # (Auto) 1.4 th/mm3 (1.0-4.8); Lymph % (Auto) 32.2 % (9.0-44.0); Mean Corpuscular HGB Conc 34.7 % (32.0-36.0); Mean Corpuscular Hemoglobin 30.4 pg (27.0-34.0); Mean Corpuscular Volume 87.5 fL (80.0-100.0); Mean Platelet Volume 8.3 fL (7.0-11.0); Mono # (Auto) 0.4 th/mm3 (0.0-0.9); Mono % (Auto) 8.2 % (0.0-8.0); Neut # (Auto) 2.6 th/mm3 (1.8-7.7); Neut % (Auto) 57.8 % (16.0-70.0); Platelet Count 218 th/mm3 (150-450); Red Blood Count 4.11 mil/mm3 (4.00-5.30); Red Cell Distribution Width 12.5 % (11.6-17.2); White Blood Count 4.5 th/mm3 (4.0-11.0)
[2017-12-15] MEDS: metroNIDAZOLE 500 MG Tablet PO SCH ×2 (16:05→20:43)
[2017-12-15] MEDS: Acetaminophen Inj 650 MG/65 ML VIAL IV.SIG SCH ×2 (17:57→21:50)
[2017-12-16] MEDS: Acetaminophen Inj 650 MG/65 ML VIAL IV.SIG SCH ×2 (04:07→10:46)
[2017-12-16] MEDS: Sod Chloride 0.9% Inj 1,000 ML IV.CONT SCH (04:07)
[2017-12-16] MEDS: Naproxen 500 MG Tablet PO SCH (09:43)
[2017-12-16] MEDS: metroNIDAZOLE 500 MG Tablet PO SCH (09:43)
[2017-12-16] MEDS: Lactobacillus Acidophilus/L. Spores Tablet PO SCH (09:43)
--- NOTE | 2017-12-16 09:49 | P.PN ---
Subjective Interval history: Follow-up for acute pyelonephritis, bacterial vaginosis. The patient reports feeling better again today. Denies fevers or chills overnight. Abdominal pain and flank pain improving. Denies any further nausea or vomiting. She has no other medical complaints at this time. Physical Exam Vital signs: Vital Signs 12/15/17 11:41 12/15/17 16:00 12/15/17 20:00 Temperature 98.1 F 98.8 F 98 F Pulse Rate 70 67 64 Respiratory Rate 16 18 18 Blood Pressure 132/84 119/74 128/81 Pulse Oximetry 98 98 97 12/16/17 00:00 12/16/17 04:00 12/16/17 04:07 Temperature 97.7 F 97.7 F Pulse Rate 55 L 62 Respiratory Rate 16 16 18 Blood Pressure 141/75 H 114/68 Pulse Oximetry 100 99 12/16/17 08:00 Temperature 97.9 F Pulse Rate 58 L Respiratory Rate 14 Blood Pressure 128/68 Pulse Oximetry 97 Intake & Output 12/15/17 12/16/17 12/16/17 18:59 06:59 18:59 Intake Total 100 / 100 195 / 195 Balance 100 / 100 195 / 195 Intake: IV 100 / 100 195 / 195 Ofirmev Inj 650 mg In 65 ml @ 195 / 195 260 mls/hr IV.SIG Q6H [facility] Rx#: [id number] Rocephin Inj 1,000 MG In NS Inj 100 / 100 100 ML @ 200 mls/hr IV.SIG Q24H [facility] Rx#:[id number] Narrative: GENERAL: Well-nourished, well-developed young female patient in [facility]. Appears comfortable, lying in bed. SKIN: Warm and dry. No rash. HEENT: Normocephalic. Atraumatic. CARDIOVASCULAR: Regular rate and rhythm. No murmur appreciated. RESPIRATORY: No accessory muscle use. Clear to auscultation. Breath sounds equal bilaterally. GASTROINTESTINAL: Abdomen soft, nondistended, nontender. MUSCULOSKELETAL: No obvious deformities. Extremities without clubbing, cyanosis , or edema. No CVA tenderness today. NEUROLOGICAL: Awake and alert. No obvious cranial nerve deficits. Moving all extremities spontaneously. Normal speech. PSYCHIATRIC: Appropriate mood and affect; insight and judgment normal. Results - Labs CBC & Chem 7: 12/15/17 13:09 12/15/17 11:15 Laboratory Results - last 24 hr 12/14/17 12/15/17 12/15/17 08:50 11:15 13:09 WBC 4.5 RBC 4.11 Hgb 12.5 Hct 36.0 MCV 87.5 MCH 30.4 MCHC 34.7 RDW 12.5 Plt Count 218 MPV 8.3 Neut % (Auto) 57.8 Lymph % (Auto) 32.2 [place] % (Auto) 8.2 H Eos % (Auto) 1.4 Baso % (Auto) 0.4 Neut # (Auto) 2.6 Lymph # (Auto) 1.4 [place] # (Auto) 0.4 Eos # (Auto) 0.1 Baso # (Auto) 0.0 WBC Differential . Differential Comment Auto diff final Sodium 142 Potassium 4.2 Chloride 112 H Carbon Dioxide 21.0 Anion Gap 9 BUN 9 Creatinine 0.75 Estimated GFR Greater than 89 Random Glucose 84 Calcium 8.0 L Total Bilirubin 0.5 AST 18 ALT 18 Alkaline Phosphatase 56 Total Protein 7.0 D Albumin 3.7 D Urine Color Yellow Urine Clarity Hazy H Urine pH 7.0 Ur Specific [place] 1.009 Urine Protein 30 H Urine Glucose (UA) Negative Urine Ketones Negative Urine Occult Blood Moderate H Urine Nitrate Negative Urine Bilirubin Negative Urine Urobilinogen Less than 2 Ur Leukocyte Esterase Large H Urine RBC 3 Urine WBC 72 H Ur Squamous Epith Cells 3 Urine Bacteria Occasional H Micro UA Comment Culture indicated Urine Culture Comments Culture indicated Microbiology 12/14/17 08:50 Clean Catch Urine Urine Culture - Preliminary gram negative rods - Imaging Abdomen/Pelvis CT 12/14/17 08:11 CONCLUSION: No acute CT findings in the abdomen or pelvis. Abdomen/Pelvis/Transvag US 12/14/17 09:29 CONCLUSION: 1. No acute finding is identified to explain the right lower quadrant pain. 2. Heterogeneous endometrium with trace endometrial fluid. Patient is currently in the menstrual phase which may explain the findings. Consider follow -up if there is a history of dysfunctional uterine bleeding. 3. Ovaries have a normal appearance with normal follicles. There is a small volume of simple free fluid in the pelvis. Assessment and Plan - Plan 27-year-old female with history of ovarian cysts presents with abdominal pain, flank pain, nausea/vomiting. Acute pyelonephritis/UTI: UA with large leuks and WBCs. No signs of sepsis at this time. -CT abd/pelvis reviewed, no acute findings -Pelvic U/S with no acute finding identified to explain the right lower quadrant pain -Continue antibiotics with IV Rocephin -Continue supportive treatment with IV fluid hydration, antiemetics, and pain control with Tylenol/NSAIDs as needed (patient declines narcotics) -Urine culture with E.coli -Symptoms improved, transition to Cipro po at discharge Bacterial vaginosis: Acute -Wet prep positive for clue cells -Continue on Flagyl, transitioned to p.o. Nausea/Vomiting: Acute, suspect urinary colic from pyelonephritis vs viral syndrome -give Zofran prn -IVF hydration -symptoms resolved, no further vomiting DVT Prophylaxis: low risk, patient is ambulatory Discharge Planning: Discharge patient to home Condition on discharge: Stable Regular Diet as tolerated Ad Rhoda activity Rx written: Cipro 500mg bid x7days, Flagyl 500mg po bid x7days total, Lactinex, Naproxen Follow-up with primary care physician within 1 week
== END 2017-12-16 13:49 | disposition home or self-care (01) ==
LOC: NEPC 07:09 → NEDA 07:09 → NEPFCDU 18:55
PROVIDERS: ADMIT Internal Medicine; ATTEND Internal Medicine
DX: E86.0 Dehydration; B96.89 Other specified bacterial agents as the cause of diseases classified elsewhere; N76.0 Acute vaginitis; N39.0 Urinary tract infection, site not specified; B96.20 Unspecified Escherichia coli [E. coli] as the cause of diseases classified elsewhere